=== PATIENT | female | born 1950 | race Caucasian/White ===

== ENCOUNTER → 2021-01-03 | Day surgery (SDC) | payer MEDICARE, OTHER ==
[~2021-01-03] MED LIST: Glycopyrrolate 0.2 MG/ML SDV ONE; Ketamine 200 MG/20 ML MDV ONE; Propofol 200 MG/20 ML SDV ONE; fentaNYL 100 MCG/2 ML SDV ONE
[2021-01-03] MEDS: Lactated Ringers 1,000 ML IV SCH (07:35)
[2021-01-03 09:29] VITALS: BP 134/56; PULSE 72
--- NOTE | 2021-01-03 13:12 | OR ---
DATE OF OPERATION: 01/03/2021 PREOPERATIVE DIAGNOSIS: SCREENING COLONOSCOPY. POSTOPERATIVE DIAGNOSIS: SCREENING COLONOSCOPY. SURGEON: Gustavo Subramanian MD PROCEDURE: FULL-LENGTH COLONOSCOPY WITH FORCEPS POLYP REMOVAL X1. ANESTHESIA: MAC. COMPLICATIONS: None. SPECIMEN: Small sessile polyp, splenic flexure, less than 0.5 cm. RECOMMENDATIONS: Followup colonoscopy in 5 years. INDICATIONS: The patient was in for routine physical. She was overdue for a routine screening colonoscopy. DESCRIPTION OF PROCEDURE: The patient was prepped and draped, placed in the left lateral decubitus position. A lubricated Olympus colonoscope was inserted and with difficulty advanced deep into the right colon. The patient has a very redundant and long colon. We were able to get past the hepatic flexure and get down near the cecum. I could see the backside of the ileocecal valve. It was hard to get into the ileocecal pouch just because of the patient's anatomy. The bowel prep was fine. Upon withdrawal what I could see of the ascending colon and transverse colon appeared benign. At the splenic flexure, the patient had a small flat sessile polyp removed in its entirety with a forceps biopsy x1. The rest of the descending colon was benign. The patient does have scattered diverticula throughout the sigmoid and rectosigmoid area, [id number] in severity. No other polyps, masses, ulceration, or lesions. No vascular abnormalities or bleeding sites. The rectal vault appeared benign. Retroflexion showed no perianal lesions. Air was suctioned. The scope was removed without complication. MELISSA/SEDA /[id number]
== END ==
LOC: CC.SDS 07:14
PROVIDERS: ATTEND Family Medicine
DX: Z12.11 Encounter for screening for malignant neoplasm of colon (principal); K63.89 Other specified diseases of intestine; K57.30 Diverticulosis of large intestine without perforation or abscess without bleeding; E78.5 Hyperlipidemia, unspecified; H91.93 Unspecified hearing loss, bilateral; M17.10 Unilateral primary osteoarthritis, unspecified knee; E66.9 Obesity, unspecified; Z68.35 Body mass index [BMI] 35.0-35.9, adult; Z79.899 Other long term (current) drug therapy
CPT/HCPCS: 00812; 45380; 88305; 99100; J2704; J3010; J3490; J7120